=== PATIENT | male | born 2000 | race Caucasian/White ===

== ENCOUNTER 2022-12-08 07:06 | Day surgery (SDC) | payer OTHER ==
[~2022-12-08] VITALS: Ht 154.9 cm; Wt 45.5 kg
[~2022-12-08 07:06] MED LIST: RINGERS SOLUTION,LACTATED 1,000 ML IV ONE
[2022-12-08] MEDS ORDERED: DEXAMETHASONE SOD PHOS 4 MG/ML VIAL IVP ONE (07:07)
[2022-12-08] MEDS ORDERED: LIDOCAINE/PF 2% 5 ML VIAL IM ONE (07:07)
[2022-12-08] MEDS ORDERED: PHENYLEPHRINE HCL 10 MG/ML VIAL IVP ONE (07:07)
[2022-12-08] MEDS ORDERED: FentaNYL CITRATE PF 100 MCG/2 ML VIAL IVP ONE (07:07)
[2022-12-08] MEDS ORDERED: ROCURONIUM BROMIDE 10 MG/ML 5 ML VIAL IVP ONE (07:07)
[2022-12-08] MEDS ORDERED: PROPOFOL 1% 20 ML VIAL IVP ONE (07:07)
[2022-12-08] MEDS ORDERED: 0.9% SODIUM CHLORIDE 10 ML VIAL IVP ONE (07:07)
[2022-12-08] MEDS ORDERED: ONDANSETRON HCL 4 MG/2 ML VIAL IVP ONE (07:07)
[2022-12-08] MEDS ORDERED: AMPICILLIN SODIUM 2 GM/NS 100 ML IV ONE (07:46)
[2022-12-08 08:11] LABS: BASOPHILS % (AUTO) 0.6 % (0.0-2.0); EOSINOPHILS % (AUTO) 2.9 % (1.0-6.0); HEMATOCRIT 40.9 % (41-53); HEMOGLOBIN 13.8 g/dL (13.5-17.5); LYMPHOCYTES # (AUTO) 1.9 K/uL (1.0-4.8); LYMPHOCYTES % (AUTO) 27.3 % (22.0-44.0); MEAN CORPUSCULAR HEMOGLOBIN 31.1 pg (26.0-34.0); MEAN CORPUSCULAR HGB CONC 33.7 G/dL (31.0-37.0); MEAN CORPUSCULAR VOLUME 92 fL (80-100); MONOCYTES # (AUTO) 0.8 K/uL (0.1-1.0); MONOCYTES % (AUTO) 10.7 % (2.0-9.0); NEUTROPHILS # (AUTO) 4.2 K/uL (1.8-7.7); NEUTROPHILS % (AUTO) 58.5 % (40.0-70.0); PLATELET COUNT (AUTO) 307 K/uL (150-450); RED BLOOD CELL COUNT(AUTO) 4.44 MIL/uL (4.50-5.90)
[2022-12-08 08:19] LABS: ANION GAP 9 mmol/L (8-16); CALCIUM, TOTAL 10.5 mg/dL (8.8-10.5); CARBON DIOXIDE 31 mmol/L (22-29); CHLORIDE 96 mmol/L (98-107); CREATININE 0.86 mg/dL (0.60-1.30); GLOMERULAR FILTR. RATE CALC > 60 mL/min (>60); GLUCOSE,RANDOM 97 mg/dL (70-110); POTASSIUM 3.5 mmol/L (3.5-5.1); SODIUM SERUM 136 mmol/L (136-145)
[2022-12-08 08:21] LABS: PROTHROMBIN TIME 10.8 SEC (9.4-11.6)
[2022-12-08 08:26] LABS: ALANINE AMINOTRANSFERASE 29 U/L (12-78); ALBUMIN 4.3 g/dL (3.4-5.0); ALKALINE PHOSPHATASE 114 U/L (46-116); ASPARTATE AMINOTRANSFERASE 22 U/L (15-37); BILIRUBIN,TOTAL 0.3 mg/dL (0.1-1.0); TOTAL PROTEIN, SERUM 7.9 g/dL (6.4-8.2)
[2022-12-08] MEDS ORDERED: [UNRECOGNIZED DRUG - CODE] GT (08:38)
[2022-12-08] MEDS ORDERED: HYDR25TA GT (08:38)
[2022-12-08] MEDS ORDERED: FAMO20 PO (08:38)
[2022-12-08] MEDS ORDERED: DIAZ10 PO (08:38)
[2022-12-08] MEDS ORDERED: DIAZ10TA4 PO (08:38)
[2022-12-08] MEDS ORDERED: CLON0.1T2 GT (08:38)
[2022-12-08] MEDS ORDERED: FERR220E10 GT (08:38)
[2022-12-08] MEDS ORDERED: ZONI100C87 PO (08:38)
[2022-12-08] MEDS ORDERED: MONT-35 GT (08:38)
[2022-12-08] MEDS ORDERED: LAMO25TB3 GT (08:38)
[2022-12-08] MEDS ORDERED: RINGERS SOLUTION,LACTATED 1,000 ML IV ONE (08:45)
[2022-12-08] MEDS ORDERED: SUGAMMADEX SODIUM 200 MG/2 ML VIAL IVP ONE (12:32)
== END 2022-12-08 13:40 | disposition home or self-care (01) ==
LOC: SURGERY 07:06
PROVIDERS: ATTEND Dentist General Practice
DX: K05.30 Chronic periodontitis, unspecified (principal); K03.6 Deposits [accretions] on teeth; Z79.01 Long term (current) use of anticoagulants; Z79.899 Other long term (current) drug therapy; D64.9 Anemia, unspecified; Z86.73 Personal history of transient ischemic attack (TIA), and cerebral infarction without residual deficits; Z98.890 Other specified postprocedural states
CPT/HCPCS: 41899; 71045; 80053; 85025; 85610; 85730; 36415; 93005; J0290; J2704; J1100; J3010; J3490 ×2; J2405; J2370; Q9967; J7120